=== PATIENT | female | born 1985 | race Asian ===

== ENCOUNTER 2016-10-23 13:16 | Emergency (ER) | payer OTHER ==
[~2016-10-23] VITALS: Ht 154.9 cm; Wt 83.9 kg
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
--- NOTE | 2016-10-23 15:33 | CT SCAN REPORT ---
EXAMINATION: CT HEAD AND CT CERVICAL SPINE WITHOUT CONTRAST. CLINICAL INFORMATION: Right-sided facial numbness. Cranial nerve XII weakness. COMPARISON: None TECHNIQUE: 5 mm thin axial and reformatted 2.5 minutes and coronal images of brain were obtained. Subsequently axial 2.5 mm thin and reformatted 2 minutes and coronal and sagittal images of cervical spine were obtained. Dose 874. FINDINGS: BRAIN: There is no acute intra-axial, extra-axial bleed no masses or midline shift. The great white matter distinction is maintained. Bone windows reveal no calvarial abnormality. There is minimal mucoperiosteal thickening sphenoid sinus. The paranasal sinuses and mastoid air cells are well-aerated. CERVICAL SPINE: On sagittal reconstructed images there is normal cervical lordosis. The vertebral heights, alignment and disc heights are normal. No visible acute fracture, dislocation or lytic process seen. The prevertebral and paravertebral soft tissues are normal. No abnormal neck lymphadenopathy or mass seen. The lung apices are clear. Bilateral thyroid, submandibular and visualized parotid glands are symmetrical and unremarkable. IMPRESSION: No acute intracranial process seen. Minimal mucoperiosteal thickening right sphenoid sinus. Reversal of cervical lordosis but without any visible acute fracture, subluxation or dislocation.
[2016-10-23] MEDS ORDERED: MEDROL4 M2 PO (15:44)
[2016-10-23 16:03] VITALS: BP 165/89
== END 2016-10-23 16:04 ==
LOC: ERH 13:16
DX: S06.0X0A Concussion without loss of consciousness, initial encounter (principal); G62.9 Polyneuropathy, unspecified; W51.XXXA Accidental striking against or bumped into by another person, initial encounter; Y93.9 Activity, unspecified; Y92.9 Unspecified place or not applicable